=== PATIENT | male | born 1975 | race Caucasian/White ===

== ENCOUNTER 2017-08-05 13:49 | Emergency (ER) | payer BC ==
[2017-08-05 14:15] VITALS: BMI 29.2
[2017-08-05 14:16] VITALS: TEMP 98.3; O2SAT 98
[2017-08-05] MEDS ORDERED: Lidocaine 2% Inj (20ml) INFIL STA (14:41)
[2017-08-05] MEDS ORDERED: TDAP Vaccine 0.5 mL Syr IM ONE (14:41)
--- NOTE | 2017-08-05 14:46 | ED PDOC ---
Arrival/HPI - General Chief Complaint: Abnormal Skin Integrity Time Seen by Provider: 08/05/17 14:41 Historian: Patient - History of Present Illness Narrative History of Present Illness (Text): 08/05/17 42 yo male come in for evaluation of Right 4th finger laceration sustained [employer] at home. Pt sts, " was fixing my car and cut with metal plate". Notes small laceration to Right 4th finger. Otherwise, pt denies fever, c hills, weakness, deformity, sensory or vascular deficits to Right hand. Ambulate to Ed, not in any apparent distress. Past Medical History - Provider Review Nursing Documentation Reviewed: Yes - Travel History Have you recently traveled outside [place] w/in the past 3 mons?: No - Past History Past History: No Previous - Infectious Disease Hx of Infectious Diseases: None - Tetanus Immunization Tetanus Immunization: Unknown - Psychiatric Hx Substance Use: No - Anesthesia Hx Anesthesia: No Family/Social History - Physician Review Nursing Documentation Reviewed: Yes Family/Social History: No Known Family HX Smoking Status: Never Smoked Hx Alcohol Use: Yes Frequency of alcohol use: Socially Hx Substance Use: No Allergies/Home Meds Allergies/Adverse Reactions: Allergies No Known Allergies Allergy (Verified 08/05/17 14:15) Home Medications: Home Meds Medication Instructions Recorded Confirmed No Known Home Med 08/05/17 08/05/17 Review of Systems - Physician Review All systems were reviewed & negative as marked: Yes - Review of Systems Constitutional: Normal Musculoskeletal: Normal Skin: Laceration Neurological: Normal Endocrine: Normal Hemo/Lymphatic: Normal Psychiatric: Normal Physical Exam Vital Signs Reviewed: Yes Vital Signs Temp Pulse Resp BP Pulse Ox 08/05/17 14:15 98.3 F 82 18 143/93 H 98 Temperature: Afebrile Blood Pressure: Normal Pulse: Regular Respiratory Rate: Normal Appearance: Positive for: Well-Appearing, Non-Toxic, Comfortable Pain Distress: None Mental Status: Positive for: Alert and Oriented X 3 - Systems Exam Upper Extremity: Present: Normal ROM (of Right 4th finger without difficulty or weakness.), NORMAL PULSES, Tenderness (mild to dorsal aspect Right 4th middle phalanx), Neurovascularly Intact, Capillary Refill < 2s (less than 2sec to Right hand). No: Deformity Neurological: Present: GCS=15, Speech Normal, Motor Func Grossly Intact, Normal Sensory Function, Norm Deep Tendon Reflexes Skin: Present: Warm, Dry, Laceration (1.5 cm cutaneous laceration to dorsal aspect Right 4th middle phalanx, mild bloody oozing from wound. No wound FB, no deformity, no tendon or ligament injury noted.) Psychiatric: Present: Alert, Oriented x 3 Medical Decision Making ED Course and Treatment: 08/05/17 On re-eval, pt is afebrile, hemodynamicaly stable. non-toxic. Right hand: laceration repaired w/sutures w/o difficulty. FAROM, no neurovascular deficits. tetanuis given. Pt advised on wound care. ref. to f/u with PMD as need in 2 days. return if any new changes/sign of infection. - Medication Orders Current Medication Orders: Discontinued Medications Lidocaine HCl (Lidocaine 2% 20ml Vial) 10 ml INFIL ONCE STA Stop: 08/05/17 14:42 Tetanus/Reduced Diphtheria/Acell Pertussis (Boostrix Vaccine Inj) 0.5 ml IM .ONCE ONE Stop: 08/05/17 14:42 Disposition/Present on Arrival - Present on Arrival Any Indicators Present on Arrival: No History of DVT/PE: No History of Uncontrolled Diabetes: No Urinary Catheter: No History of Decub. Ulcer: No History Surgical Site Infection Following: None - Disposition Have Diagnosis and Disposition been Completed?: Yes Diagnosis: Finger laceration Disposition: HOME/ ROUTINE Disposition Time: 14:49 Patient Plan: Discharge Condition: STABLE Discharge Instructions (ExitCare): Laceration (ED) Print Language: CZECH Additional Instructions: Keep wound dry for 3-4 days, clean light duty to injured finger Suture removal in 7-10 days Return to Ed at any time if any sign of infection. Referrals: [facility] [Outside] - Follow up with primary Forms: [employer] (Lithuanian) Laceration - Laceration Repair Right 4th finger Wound Length (In cm): 18 in Description Of Wound: Linear Wound Cleansed With: Betadine Anesthesia: Lidocaine 2% Wound Examination: Irrigated With Saline, No FB With Wound Exploration, No Tendon Injury With Wound Exploration Wound Closure: Suture (#4) Suture Technique And Material Used: Interrupted, Nylon (4-0) Wound Complexity: Simple
[2017-08-05 15:39] VITALS: BP 140/95; PULSE 78; RESP 17
== END 2017-08-05 15:46 | disposition home or self-care (01) ==
LOC: ED 13:49
DX: S61.214A Laceration without foreign body of right ring finger without damage to nail, initial encounter (principal); W45.8XXA Other foreign body or object entering through skin, initial encounter; Z23 Encounter for immunization

== ENCOUNTER 2017-08-13 17:50 | Emergency (ER) | payer BC ==
[2017-08-13 17:51] VITALS: BMI 29.2
== END 2017-08-13 17:59 | disposition left against medical advice (07) ==
LOC: ED 17:50
DX: Z02.89 Encounter for other administrative examinations (principal)

== ENCOUNTER 2017-08-19 13:57 | Emergency (ER) | payer BC ==
[2017-08-19 13:57] VITALS: BMI 29.2
[2017-08-19 14:03] VITALS: BP 113/76; PULSE 78; RESP 18; TEMP 97.8; O2SAT 98
--- NOTE | 2017-08-19 14:57 | ED PDOC ---
Arrival/HPI - General Chief Complaint: Suture/Staple Removal Time Seen by Provider: 08/19/17 14:53 Historian: Patient - History of Present Illness Narrative History of Present Illness (Text): 08/19/17 14:54 This 42 yo male presents to this ED requesting sutures removal. Patient stated he had finger laceration repaired x 2 weeks ago. Denies new complains. Time/Duration: Other (2 weeks) Past Medical History - Provider Review Nursing Documentation Reviewed: Yes - Past History Past History: No Previous - Infectious Disease Hx of Infectious Diseases: None - Tetanus Immunization Tetanus Immunization: Unknown - Psychiatric Hx Substance Use: No - Anesthesia Hx Anesthesia: No Family/Social History - Physician Review Nursing Documentation Reviewed: Yes Family/Social History: Other (non-contributory) Smoking Status: Never Smoked Hx Alcohol Use: Yes Hx Substance Use: No Allergies/Home Meds Allergies/Adverse Reactions: Allergies No Known Allergies Allergy (Verified 08/05/17 14:15) Home Medications: Home Meds Medication Instructions Recorded Confirmed No Known Home Med 08/05/17 08/19/17 Review of Systems - Review of Systems Constitutional: Normal. absent: Fatigue, Weight Change, Fevers Eyes: Normal ENT: Normal Respiratory: Normal Cardiovascular: Normal Gastrointestinal: Normal Genitourinary Male: Normal Musculoskeletal: Other ((+) right 4th finger sutures removal) Skin: Normal Neurological: Normal Endocrine: Normal Hemo/Lymphatic: Normal Psychiatric: Normal Physical Exam Vital Signs Temp Pulse Resp BP Pulse Ox 08/19/17 14:02 97.8 F 78 18 113/76 98 Temperature: Afebrile Blood Pressure: Normal Pulse: Regular Respiratory Rate: Normal Appearance: Positive for: Well-Appearing, Non-Toxic, Comfortable Pain Distress: None Mental Status: Positive for: Alert and Oriented X 3 - Systems Exam Head: Present: Atraumatic, Normocephalic Pupils: Present: PERRL Extroacular Muscles: Present: EOMI Conjunctiva: Present: Normal Mouth: Present: Moist Mucous Membranes Neck: Present: Normal Range of Motion Upper Extremity: Present: Normal ROM, NORMAL PULSES, Neurovascularly Intact, Capillary Refill < 2s, Other ((+) 3 sutures located over distal dorsal IPJ area , right 4th finger. No erythema, or drainage. No tenderness). No: Tenderness , Swelling, Erythema, Temperature Abnormalties Lower Extremity: Present: Normal Inspection, Normal ROM Neurological: Present: GCS=15, CN II-XII Intact, Speech Normal, Motor Func Grossly Intact, Normal Sensory Function, Normal Cerebellar Funct, Gait Normal Skin: Present: Warm, Dry, Normal Color. No: Rashes Medical Decision Making ED Course and Treatment: 08/19/17 14:57 Re-evaluation. Patient feels better. Discussed results and plan with patient who expresses understanding. All questions answered and there is agreement with the plan to discharge home with instructions. Patient stable for discharge. Return if symptoms persist or worsen. Under sterile technique, 3 sutures were removed without discomfort. Patient tolerated procedure well Re-evaluation Time: 14:58 Reassessment Condition: Re-examined, Improved Disposition/Present on Arrival - Present on Arrival Any Indicators Present on Arrival: No History of DVT/PE: No History of Uncontrolled Diabetes: No Urinary Catheter: No History of Decub. Ulcer: No History Surgical Site Infection Following: None - Disposition Have Diagnosis and Disposition been Completed?: Yes Diagnosis: Encounter for removal of sutures, Encounter for wound re-check Disposition: HOME/ ROUTINE Disposition Time: 14:59 Patient Plan: Discharge Condition: GOOD Discharge Instructions (ExitCare): Stitches Removal (ED) Additional Instructions: Call private doctor for follow up visit as needed. Return to emergency if wound becomes infected, redness, or drainage Referrals: PCP,NO [Primary Care Provider] - Follow up with primary
== END 2017-08-19 15:10 | disposition home or self-care (01) ==
LOC: ED 13:57
DX: Z48.02 Encounter for removal of sutures (principal)